=== PATIENT | female | born 1995 | race Two or more races ===

== ENCOUNTER 2024-10-02 16:07 | Emergency (ER) | payer MEDICAID, SELFPAY ==
[2024-10-02 16:08] VITALS: BMI 29.2
--- NOTE | 2024-10-02 16:10 | EKG_ITS ---
[facility] Test Date: 2024-10-02 Pat Name: TATIANNA ESCAMILLA Department: Room: - Gender: Female Library Helper: : 1995 Requested By: Mikal Zhou (ALLEN) Order Number: [id number] Reading MD: Mikal Zhou (SPARE FIXER) Measurements Intervals [place] Rate: 85 P: 43 MD: 112 QRS: 46 QRSD: 85 T: 47 QT: 347 QTc: 414 Interpretive Statements SINUS RHYTHM WITH SHORT MD INTERVAL No previous ECG available for comparison /store/S0/[id number]
[2024-10-02 17:00] VITALS: BP 150/94; PULSE 86; RESP 16; TEMP 36.7; O2SAT 100
--- NOTE | 2024-10-02 17:09 | EDNOTE_ITS ---
ED General RME/HPI General Chief complaint: Anxiety Stated complaint: SENT CLINIC FOR HIGH BLOOD PRESSURE AND ANXIETY Time Seen by Provider: 10/02/24 16:10 Arrival date/time: 10/02/24 16:07 28-year-old female with history of anxiety and methamphetamine use last use yesterday presents stating that she was anxious today and therefore came to the ER. Patient reports no chest pain no shortness of breath no headache dizziness weakness. Patient reports previously she took a prescription of hydroxyzine and she is out of her medication Limitations: no limitations Related Data Previous Rx's ?Medication ?Instructions ?Recorded hydroxyzine HCl 50 mg tablet 50 mg PO TID PRN anxiety #30 tabs 10/02/24 Allergies Allergy/AdvReac Type Severity Reaction Status Date / Time No Known Allergies Allergy Verified 10/02/24 16:08 Review of Systems Review of Systems Systems Reviewed: All systems reviewed, normal except as documented Constitutional Constitutional: Reports system reviewed and no additional complaints, except as documented, Denies fever(s) and Denies headache(s) Eyes Eyes: Reports system reviewed and no additional complaints, except as documented and Denies blurry vision ENT Ears, Nose, Mouth, and Throat: Reports system reviewed and no additional complaints, except as documented, Denies headache(s), Denies nasal congestion and Denies nasal discharge Cardiovascular Cardiovascular: Reports system reviewed and no additional complaints, except as documented, Denies chest pain and Denies dyspnea Respiratory Respiratory: Reports system reviewed and no additional complaints, except as documented, Denies chest congestion, Denies cough and Denies dyspnea Gastrointestinal Gastrointestinal: Reports system reviewed and no additional complaints, except as documented and Denies abdominal pain Integumentary/Breasts Skin/Breast: Reports system reviewed and no additional complaints, except as documented and Denies rash Neurologic Neurologic: Reports system reviewed and no additional complaints, except as documented, Reports as per HPI and Denies headache(s) Psychiatric Psychiatric: Reports system reviewed and no additional complaints, except as documented and Reports anxiety Past Medical History Past Medical History NEUROLOGIC: Negative Neurological Disorders or Seizures CARDIAC: Negative Cardiac Disorders or Congestive Heart Failure RESPIRATORY: Negative Chronic Obstructive Pulmonary Disease (COPD) GASTROINTESTINAL: Positive Gastrointestinal Disorders, Gall Bladder Disease (FOR THIS PROC) and Obesity GENITOURINARY: Negative Genitourinary Disorders or Renal Disease REPRODUCTIVE: Positive Previous Pregnancies (X1) MUSCULOSKELETAL: Positive Musculoskeletal Disorders ENDOCRINE: Negative Endocrine Disorders, Diabetes Mellitus Type 1 or Diabetes Mellitus Type 2 HEMATOLOGIC: Negative Blood Disorders OTHER HISTORY: Negative Autoimmune Disease, Blood Transfusions, Blood Transfusion Reaction or Anesthesia Reactions Family History FAMILY HISTORY: Positive Family Cancer (FATHER (KIDNEY)) and Family Surgery (MOTHER,FATHER) Social History SMOKING STATUS: Never smoker ED Exam General Limitations: Present no limitations General appearance: Present alert and in no apparent distress Head Head exam: Present atraumatic, normocephalic and normal inspection Eye Eye exam: Present normal appearance, PERRL and EOMI; Absent conjunctival injection ENT ENT exam: Present normal exam, normal oropharynx and mucous membranes moist Neck Neck exam: Present normal inspection, full ROM and trachea midline Chest Chest inspection: Present normal inspection and symmetric chest wall rise Respiratory Respiratory exam: Present normal lung sounds bilaterally; Absent respiratory distress, wheezes, stridor or accessory muscle use Cardiovascular Cardiovascular exam: Present regular rate, normal rhythm and normal heart sounds Abdominal Exam Abdominal exam: Present soft and normal bowel sounds; Absent distention, tenderness, guarding, rebound or rigidity Extremities Exam Extremities exam: Present normal inspection and full ROM Back Exam Back exam: Present normal inspection and full ROM Neurological Exam Neurological exam: Present alert, oriented X3 and CN II-XII intact Psychiatric Psychiatric exam: Present normal affect and normal mood Skin Skin exam: Present warm, dry, intact and normal color Course Quality Measures none Orders Category Date Time Status EKG (ED ONLY) *Do not use* NOW Care 10/02/24 16:10 Active EKG (ED Only) Stat Exams 10/02/24 16:10 Draft Vital Signs Vital signs: Vital Signs Temperature 98.0 F 10/02/24 17:00 Pulse Rate 86 10/02/24 17:00 Respiratory Rate 16 10/02/24 17:00 Blood Pressure 150/94 H 10/02/24 17:00 Pulse Oximetry (%) 100 10/02/24 17:00 Oxygen Delivery Method Room Air 10/02/24 17:00 O2 saturation 100% room air within normal limits Procedures -ED EKG Interpretation #1: Date of EK10/02/24 Time of EK:58 Rate: 85 Interpretation: Interpreted by me EKG Impression: Normal sinus rhythm, No acute ST-T changes, No ectopy, No ischemic changes, Normal QRS, Normal intervals and Normal axis MDM Patient data External records reviewed:: [facility] previous records Clinical information provided by:: patient Social determinants that could affect healthcare access:: substance use Patient has the following chronic illnesses:: Substance abuse How is presenting disease/condition affected by chronic disease/condition?: caused by Evaluation data The following diagnostics were reviewed and interpreted by me:: EKG tracing(s) Lab and/or radiology exams considered but not ordered:: EKG obtained Interpretation Summary: Reviewed by me Medications Medications considered but not ordered:: Given Medication administrations:: Given Consultations Consultation(s) initiated? (list below): No Diagnosis Differential Diagnosis ED Complaint MDM: Anxiety, depression, drug abuse Most likely diagnosis given after review of the tests above:: Anxiety Admission Indicated Admission indicated?: not indicated Explain why admission is indicated or not indicated:: No criteria Admission Request Was there a request for admission?: No Disposition Plan Disposition Plan: Discharge Discharge Attestation Discharge Attestation: The patient and all family members were given an opportunity to ask questions and understood the discharge instructions. Discharge instructions specifically effects, indications for sooner follow up or return to the emergency department, and the expected course of current diagnosis. Patient condition: Stable Medical Decision Making MDM Narrative MDM Narrative: 28-year-old female with history of anxiety and methamphetamine use last use yesterday presents stating that she was anxious today and therefore came to the ER. Patient reports no chest pain no shortness of breath no headache dizziness weakness. Patient reports previously she took a prescription of hydroxyzine and she is out of her medication On exam patient well-appearing patient does not appear ill or toxic. Patient reports no suicidal or homicidal ideation EKG obtained EKG normal sinus rhythm with short MI interval no acute ST elevation or depression Patient given a prescription for hydroxyzine and discharged home Differential Diagnosis Differential Diagnosis: Anxiety, depression, drug abuse Medical Records Medical records reviewed: Yes I reviewed the patient's medical records. Discharge Plan Plan Patient Disposition: HOME (Self Care) Disposition Comment: Stable Prescriptions/Referrals Prescriptions/Med Rec: New hydroxyzine HCl 50 mg tablet 50 mg PO TID PRN (Reason: anxiety) Qty: 30 0RF Problem List Clinical Impression: Anxiety, Methamphetamine use Patient/Caregiver Discharge Instructions Education Materials: ED Anxiety Reaction Additional Instructions: Please follow up with your primary care doctor in the next 24-48hrs for any worsening symptoms return here immediately Print Language: Nigerien Stand Alone Forms: Carol Award Info., Patient Portal Info Letter PA/COAL DUMPING EQUIPMENT OPERATOR Supervising Physician PA/COAL DUMPING EQUIPMENT OPERATOR Supervising Physician: Dr leung
== END 2024-10-02 19:07 | disposition home or self-care (01) ==
LOC: SERX 19:01
PROVIDERS: Emergency Provider Emergency Medicine
DX: F41.9 Anxiety disorder, unspecified (principal); F15.90 Other stimulant use, unspecified, uncomplicated
CPT/HCPCS: 93005; 99283

== ENCOUNTER 2024-10-13 17:06 | Emergency (ER) | payer MEDICAID, SELFPAY ==
[2024-10-13 17:07] VITALS: BMI 28.3
[2024-10-13 17:38] VITALS: BP 142/102; PULSE 70; RESP 20; TEMP 36.7; O2SAT 100
--- NOTE | 2024-10-13 17:45 | PD.EDRME ---
Rapid Medical Screening Exam RME Arrival date/time: 10/13/24 17:06 Chief Complaint: Headache Time Seen by Provider: 10/13/24 17:34 Vital signs: Vital Signs Temperature 98.0 F 10/13/24 17:38 Pulse Rate 70 10/13/24 17:38 Respiratory Rate 20 10/13/24 17:38 Blood Pressure 142/102 H 10/13/24 17:38 Pulse Oximetry (%) 100 10/13/24 17:38 Oxygen Delivery Method Room Air 10/13/24 17:38 Vital signs reviewed by provider: Yes RME Narrative: 28-year-old female presents to the ED with a complaint of right sided headache with pain behind her right eye. She has been having these headaches for approximately 2 weeks after quitting crystal meth. She has been seeing a primary care provider. She has associated nausea and the possibility of syncope. She has had similar headaches but this is much worse. She has felt hot and cold flashes however no documented temperature at home.
--- NOTE | 2024-10-13 17:52 | XR_ITS ---
Examination: CT brain head without contrast. 2-D sagittal coronal reconstructions Date and time of exam:October 13, 2024 1803 hours Indications: Right-sided headaches blurred vision: 12-year-old beginning one week ago CTDI: vol (mGy):11.3 DLP: (mGycm):1599 Technique: Multiple CT axial sections of the brain have been obtained, 5 mm slice thickness. Contrast has not been administered. 2-D sagittal, coronal reconstructions have been obtained Low dose protocols were performed. One or more of the following dose reduction techniques were used; automated exposure control, adjustment of the mA and/or KV according to patient size, use of iterative reconstruction technique. Findings: No significant ventricular enlargement. Intra-axial or extra-axial hemorrhage density is not seen. No mass effect or midline shift Basal cisterns are not remarkable. Fourth ventricle is midline. Cranial vault intact. Impression: Negative for acute hemorrhage, mass effect or midline shift As clinically warranted, brain MRI follow-up would best assess for demyelinating disease, acute ischemic change
[2024-10-13 18:31] LABS: Collection Type, Urine Clean Catch
[2024-10-13 18:34] LABS: Basophils # (Auto) 0.1 Thou/mm3 (0.0-0.2); Basophils % (Auto) 0 % (0-2.5); Eosinophils # (Auto) 0.1 Thou/mm3 (0.0-0.5); Eosinophils % (Auto) 1 % (0-10); Hematocrit 36.2 % (36.0-46.0); Hemoglobin 11.7 g/dL (12.0-16.0); Immature Granulocytes % (Auto) 0 % (0-0); Immature Granulocytes Auto 0.04 Thou/mm3 (0.00-0.00); Lymphocytes # (Auto) 2.6 Thou/mm3 (1.0-4.8); Lymphocytes % (Auto) 20 % (10-50); Mean Corpuscular HGB Conc 32.3 g/dl (31.0-37.0); Mean Corpuscular Hemoglobin 27.5 pg (25.0-35.0); Mean Corpuscular Volume 85 fL (80-100); Monocytes # (Auto) 0.5 Thou/mm3 (0.0-0.8); Monocytes % (Auto) 4 % (0-12); Neutrophils # (Auto) 9.9 Thou/mm3 (1.8-7.7); Neutrophils % (Auto) 75 % (37-80); Nucleated Red Blood Cell % 0 /100 WBC (0); Platelet Count 316 Thou/mm3 (140-440); RDW Standard Deviation 46.6 fL (36.4-46.3); Red Blood Count 4.25 Miln/mm3 (4.00-5.20); White Blood Count 13.2 Thou/mm3 (3.6-11.0)
[2024-10-13 18:37] LABS: HCG Qualitative,Urine Negative
[2024-10-13 18:45] LABS: Bacteria,Urine Rare; Bilirubin,Urine Negative (Negative); Blood,Urine Negative (Negative); Clarity,Urine Clear (Clear/Hazy); Color,Urine Lt-Yellow (Lt Yel-Yel); Glucose, Urine Negative (Negative); Hyaline Casts,Urine < 1 /hpf (0-1); Ketones,Urine Negative (Negative); Leukocyte Esterase,Urine Negative (Negative); Nitrite,Urine Negative (Negative); Protein,Urine Trace (Neg - Trace); RBC,Urine 2 /hpf (0-3); Specific Gravity,Urine 1.023 (1.001-1.035); Squamous Epithelial Cell,Urine 2 /hpf (0-5); WBC,Urine 2 /hpf (0-5)
[2024-10-13] MEDS: KETOROLAC INJ 60 MG/2 ML VIAL 30 MG IM (18:57)
[2024-10-13 19:00] LABS: Alanine Aminotransferase 19 U/L (10-49); Albumin/Globulin Ratio 1.4 (1.2-2.2); Alkaline Phosphatase 75 U/L (46-116); Anion Gap 8 (7-16); Aspartate Amino Transferase 21 U/L (0-34); BUN/Creatinine Ratio 13 Ratio (12-20); Bilirubin,Total 0.4 mg/dL (0.3-1.2); Blood Urea Nitrogen 10 mg/dL (9-23); Calcium 8.6 mg/dL (8.3-10.6); Calcium (Corrected) 8.6 mg/dL (8.5-10.1); Carbon Dioxide 28.8 mMol/L (20.0-31.0); Chloride 104 mMol/L (98-107); Creatinine (Component) 0.8 mg/dL (0.6-1.3); Estimated Creatinine Clearance 107.5 mL/min (>60); Globulin 2.8 gm/dL (2.3-3.5); Glucose 95 mg/dL (74-106); Osmolality,Calculated 280 (275-295); Sodium 141 mMol/L (136-145); Total Protein 6.8 gm/dL (5.7-8.2); eGFR > 60 See Note
[2024-10-13 19:16] LABS: Sed Rate (ESR) 16 mm/hr (0-20)
[2024-10-13 20:10] VITALS: BP 137/82; PULSE 85; RESP 18; TEMP 36.7; O2SAT 100
--- NOTE | 2024-10-13 20:47 | EDNOTE_ITS ---
ED General RME/HPI General Chief complaint: Headache Stated complaint: VELASQUEZ, NEAR SYNCOPE Time Seen by Provider: 10/13/24 17:34 Arrival date/time: 10/13/24 17:06 CC: Right-sided headache HPI ongoing for the past 2 days, the patient stopped using methamphetamines 2 weeks ago has been sober since. Patient last menstrual cycle it was in July she was tested for 1 week ago and it was negative. Patient admits she is sexually active. Patient denies fever chills chest pain shortness of breath or difficulty breathing. She has earlier in the day she had light sensitivity but no noise sensitivity currently they are all resolved. No other complaints no OTC medicines taken. RME / HPI RME / HPI narrative: 28-year-old female presents to the ED with a complaint of right sided headache with pain behind her right eye. She has been having these headaches for approximately 2 weeks after quitting crystal meth. She has been seeing a primary care provider. She has associated nausea and the possibility of syncope. She has had similar headaches but this is much worse. She has felt hot and cold flashes however no documented temperature at home. Related Data Previous Rx's ?Medication ?Instructions ?Recorded hydroxyzine HCl 50 mg tablet 50 mg PO TID PRN anxiety #30 tabs 10/02/24 meloxicam 7.5 mg tablet 7.5 mg PO QDAY #10 tabs 09/30 10/24 Allergies Allergy/AdvReac Type Severity Reaction Status Date / Time No Known Allergies Allergy Verified 10/02/24 16:08 Review of Systems Review of Systems Narrative Review of Systems: GEN: No fever, no chills, no weight loss EYES: No discharge, no visual changes, no pain HEENT: No ear pain, no congestion, no sore throat PULM: No shortness of breath, no cough, no congestion CV: No chest pain, no dyspnea on exertion, no palpitations GI: No nausea, no vomiting, no diarrhea, no pain, no constipation : No frequency, no urgency, no dysuria MUSC/SKEL: No joint pain, no back pain SKIN: No rash PSYCH: No hallucinations, no depression HEME/LYMPH: No easy bleeding or bruising tendencies NEURO: No weakness, + headache Past Medical History Past Medical History NEUROLOGIC: Negative Neurological Disorders or Seizures CARDIAC: Negative Cardiac Disorders or Congestive Heart Failure RESPIRATORY: Negative Chronic Obstructive Pulmonary Disease (COPD) GASTROINTESTINAL: Positive Gastrointestinal Disorders, Gall Bladder Disease (FOR THIS PROC) and Obesity GENITOURINARY: Negative Genitourinary Disorders or Renal Disease REPRODUCTIVE: Positive Previous Pregnancies (X1) MUSCULOSKELETAL: Positive Musculoskeletal Disorders ENDOCRINE: Negative Endocrine Disorders, Diabetes Mellitus Type 1 or Diabetes Mellitus Type 2 HEMATOLOGIC: Negative Blood Disorders OTHER HISTORY: Negative Autoimmune Disease, Blood Transfusions, Blood Transfusion Reaction or Anesthesia Reactions Family History FAMILY HISTORY: Positive Family Cancer (FATHER (KIDNEY)) and Family Surgery (MOTHER,FATHER) Social History SMOKING STATUS: Current some day smoker ED Exam Narrative Physical exam: [General: Not in any acute distress Head normocephalic HEENT: Eyes pupils are PERRLA EOMs are intact mouth pink moist membranes uvula is midline swallow symmetrical phonation is normal. All of the subsystems of ATTR within acceptable limits Neck is supple nontender Chest equal chest rise nontender to palpation Respiratory: Clear to auscultation no wheezes crackles or rubs CV: Rate rhythm is regular no murmurs rubs or clicks Abdomen is distended secondary to body habitus soft nontender no masses positive bowel sounds all 4 quadrants Back: No CVA tenderness no spinous process tenderness from cervical spine thoracic and lumbar spine Skin: Intact no petechiae rash induration ulceration or crepitus Extremities: Moving all extremity against resistance cap refill less than 2 seconds neurosensory intact Neuro: Awake alert oriented x3 Glascow coma 15 no focal deficits] Course Quality Measures none Orders Category Date Time Status CT head/brain wo con Stat Exams 10/13/24 17:52 Completed CBC Stat Lab 10/13/24 18:28 Completed CMP [Comprehensive Metabolic Panel] Stat Lab 10/13/24 18:28 Completed ESR [Sed Rate (ESR)] Stat Lab 10/13/24 18:28 Completed HCG Qualitative,Urine Stat Lab 10/13/24 18:18 Completed Urinalysis Stat Lab 10/13/24 18:18 Completed Ketorolac Inj [Toradol Inj] Med 10/13/24 17:52 Discontinued 30 mg IM X1 ONE Vital Signs Vital signs: Vital Signs Temperature 98.0 F 10/13/24 17:38 Pulse Rate 70 10/13/24 17:38 Respiratory Rate 20 10/13/24 17:38 Blood Pressure 142/102 H 10/13/24 17:38 Pulse Oximetry (%) 100 10/13/24 17:38 Oxygen Delivery Method Room Air 10/13/24 17:38 MDM Patient data External records reviewed:: [facility] previous records Clinical information provided by:: patient Social determinants that could affect healthcare access:: none Patient has the following chronic illnesses:: Methamphetamine use low back pain. How is presenting disease/condition affected by chronic disease/condition?: u neffected by Evaluation data The following diagnostics were reviewed and interpreted by me:: lab results Lab and/or radiology exams considered but not ordered:: CBC shows a mild leukocytosis of 13.2 hemoglobin 11.7 normal hematocrit no thrombocytopenia CMP shows no acute electrolyte imbalances renal impairment transaminitis or T. bili elevation. Urine is negative for UTI Urine is negative. Interpretation Summary: This may be considered a migraine or typical headache however the majority of it is gone we will discharge the patient home on meloxicam she is to follow-up with her primary care provider and continue to talk to her counselor regarding her anxiety. Medications Medications considered but not ordered:: None Medication administrations:: Medication Administration History Discontinued Medications Ketorolac Tromethamine (Ketorolac Inj 60 Mg/2 Ml Vial) 30 mg IM X1 ONE Stop: 10/13/24 17:53 Last Admin: 10/13/24 18:57 Dose: 30 mg Documented By: KF None Consultations Consultation(s) initiated? (list below): No Diagnosis Differential Diagnosis ED Complaint MDM: Complex migraine tension headache General Headache Most likely diagnosis given after review of the tests above:: Headache Admission Indicated Admission indicated?: not indicated Explain why admission is indicated or not indicated:: Stable for discharge Admission Request Was there a request for admission?: No Disposition Plan Disposition Plan: Discharge Discharge Attestation Discharge Attestation: The patient and all family members were given an opportunity to ask questions and understood the discharge instructions. Discharge instructions specifically effects, indications for sooner follow up or return to the emergency department, and the expected course of current diagnosis. Patient condition: Stable Medical Decision Making Differential Diagnosis Differential Diagnosis: Complex migraine tension headache General Headache Lab Data 10/13/24 18:28 10/13/24 18:28 Labs: Lab Results 10/13/24 10/13/24 Range/Units 18:18 18:28 WBC 13.2 H (3.6-11.0) Thou/mm3 RBC 4.25 (4.00-5.20) Miln/mm3 Hgb 11.7 L (12.0-16.0) g/dL Hct 36.2 (36.0-46.0) % MCV 85 (80-100) fL MCH 27.5 (25.0-35.0) pg MCHC 32.3 (31.0-37.0) g/dl RDW Std Deviation 46.6 H (36.4-46.3) fL Plt Count 316 (140-440) Thou/mm3 Neut % (Auto) 75 (37-80) % Lymph % (Auto) 20 (10-50) % [place] % (Auto) 4 (0-12) % Eos % (Auto) 1 (0-10) % Baso % (Auto) 0 (0-2.5) % Neut # (Auto) 9.9 H (1.8-7.7) Thou/mm3 Lymph # (Auto) 2.6 (1.0-4.8) Thou/mm3 [place] # (Auto) 0.5 (0.0-0.8) Thou/mm3 Eos # (Auto) 0.1 (0.0-0.5) Thou/mm3 Baso # (Auto) 0.1 (0.0-0.2) Thou/mm3 Immature Gran # (Auto) 0.04 H (0.00-0.00) Thou/mm3 Absolute Nucleated RBC 0.00 (0.00-0.00) Thou/mm3 Immature Gran % 0 (0-0) % Nucleated RBC % 0 (0) /100 WBC ESR 16 (0-20) mm/hr Sodium 141 (136-145) mMol/L Potassium 4.0 (3.4-5.1) mMol/L Chloride 104 (98-107) mMol/L Carbon Dioxide 28.8 (20.0-31.0) mMol/L Anion Gap 8 (7-16) BUN 10 (9-23) mg/dL Creatinine 0.8 (0.6-1.3) mg/dL Estim Creat Clear Calc 107.5 (>60) mL/min eGFR > 60 (60 - ) See Note BUN/Creatinine Ratio 13 (12-20) Ratio Glucose 95 (74-106) mg/dL Calculated Osmolality 280 (275-295) Calcium 8.6 (8.3-10.6) mg/dL Corrected Calcium 8.6 (8.5-10.1) mg/dL Total Bilirubin 0.4 (0.3-1.2) mg/dL AST 21 (0-34) U/L ALT 19 (10-49) U/L Alkaline Phosphatase 75 (46-116) U/L Total Protein 6.8 (5.7-8.2) gm/dL Albumin 4.0 (3.5-5.0) gm/dL Globulin 2.8 (2.3-3.5) gm/dL Albumin/Globulin Ratio 1.4 (1.2-2.2) Ur Collection Type Clean Catch Urine Color Lt-Yellow (Lt Yel-Yel) Urine Clarity Clear (Clear/Hazy) Urine pH 7.0 (5.0-7.0) Ur Specific [place] 1.023 (1.001-1.035) Urine Protein Trace (Neg - Trace) Urine Glucose (UA) Negative (Negative) Urine Ketones Negative (Negative) Urine Blood Negative (Negative) Urine Nitrite Negative (Negative) Urine Bilirubin Negative (Negative) Urine Urobilinogen (Auto) 2.0 (0.0-1.0) mg/dL Ur Leukocyte Esterase Negative (Negative) Urine RBC 2 (0-3) /hpf Urine WBC 2 (0-5) /hpf Ur Squamous Epith Cells 2 (0-5) /hpf Urine Bacteria Rare (None) Hyaline Casts < 1 (0-1) /hpf Urine HCG, Qual Negative Discharge Plan Plan Patient Disposition: HOME (Self Care) Patient condition on transfer: Stable Prescriptions/Referrals Prescriptions/Med Rec: New meloxicam 7.5 mg tablet 7.5 mg PO QDAY Qty: 10 0RF No Action hydroxyzine HCl 50 mg tablet 50 mg PO TID PRN (Reason: anxiety) Qty: 30 0RF Referrals: No Primary/Family,Physician [Primary Care Provider] - In 1 week Problem List Clinical Impression: Headache Patient/Caregiver Discharge Instructions Other Activity Instructions:: Keep a diary of your anxiety attacks and talk to your counselor regarding finding the triggers and how to work through the anxiety. Follow-up with your regular doctor appointments continue to stay off methamphetamines that is a tremendously good job that you have done thus far. Remember 1 day at a time. Education Materials: Self-Care for Headaches Print Language: Panamanian Stand Alone Forms: [employer] Award Info., Work/School Release, Patient Portal Info Letter PA/CLINICAL CYTOPATHOLOGIST Supervising Physician PA/CLINICAL CYTOPATHOLOGIST Supervising Physician: Miguel Pascal ENP
[2024-10-13 20:56] VITALS: BP 140/79; PULSE 81; RESP 18; O2SAT 100
== END 2024-10-13 20:58 | disposition home or self-care (01) ==
PROVIDERS: Physician Assistant; Emergency Provider Emergency Medicine
DX: R51.9 Headache, unspecified (principal)
CPT/HCPCS: 36415; 70450; 80053; 81001; 81025; 85025; 85652; 96372; 99284; J1885

== ENCOUNTER 2025-06-10 15:15 | Emergency (ER) | payer MEDICAID, SELFPAY ==
[2025-06-10 16:00] VITALS: BP 130/84; PULSE 71; RESP 18; TEMP 36.8; O2SAT 98; BMI 35.2
--- NOTE | 2025-06-10 17:32 | PD.EDWOUND ---
ED Wound/Laceration-RME/HPI General Chief Complaint: Wound/Laceration Stated Complaint: Left 3rd toe infection Time Seen by Provider: 06/10/25 16:45 Arrival date/time: 06/10/25 15:15 RME / HPI RME / HPI narrative: Healthy 28-year-old female complaining of left third toe pain with blisters and pus which began 3 days ago. Denies any fever, nausea, vomiting, trauma, numbness, tingling, weakness. Denies chance of . Related Data Previous Rx's ?Medication ?Instructions ?Recorded hydroxyzine HCl 50 mg tablet 50 mg PO TID PRN anxiety #30 tabs 10/02/24 meloxicam 7.5 mg tablet 7.5 mg PO QDAY #10 tabs 10/13/24 cephalexin 500 mg capsule 500 mg PO QID #40 caps 06/10/25 sulfamethoxazole 800 1 tab PO BID #20 tabs 06/10/25 mg-trimethoprim 160 mg tablet (Bactrim DS) Allergies Allergy/AdvReac Type Severity Reaction Status Date / Time No Known Allergies Allergy Verified 06/10/25 15:20 ED Exam Narrative Physical exam: Constitutional: Vital Signs Reviewed. Well appearing. No acute distress. Not toxic appearing. Head: Normocephalic, atraumatic. Eyes: Conjunctiva clear. ENT: Mucous membranes moist. Neck: Trachea midline. Normal range of motion. No nuchal rigidity. Respiratory: Normal effort. No respiratory distress or accessory muscle use. Neuro: Alert and oriented. Speech normal. No focal gross motor or sensory deficits observed. Skin: Warm, dry, normal color. Psych: Pleasant. Normal affect. Cooperative. Extremity: Left foot at the third digit interdigital webspace between 3 and 4 there is minimal erythema, 3 puncture sized wounds noted to the interdigital webspace with yellow discharge that does not probe to bone. Full range of motion and strength 5 out of 5 and sensation intact to light touch for MTP PIP and DIP joint of the left third digit. No crepitus or fluctuance or ecchymosis. Cap refill less than 2 seconds. Course Course Course Narrative: MDM ?cellulitis This patient?s soft tissue infection appears appropriate for outpatient management with close follow-up by a clinician within 24?48 hours. There are no signs of systemic toxicity, and a serious, rapidly progressive infection is unlikely based on presentation and exam. Doubt necrotizing fasciitis given lack of tenderness beyond erythema or crepitus, and doubt lymphangitis given lack of streaking. No focal fluid collection is appreciated to suggest need for incision and drainage. Antibiotics have been initiated, and response will be assessed at follow-up. The patient has been instructed on signs of acute progression and to return immediately if symptoms worsen or change Quality Measures none Orders Category Date Time Status Wound Culture and Gram Stain Stat Lab 06/10/25 17:04 Received Trimethoprim/Sulfa 160/800 Ds [Bactrim Ds] Med 06/10/25 18:04 Once 1 tab PO X1 ONE cephALEXin [Keflex] Med 06/10/25 18:04 Once 500 mg PO X1 ONE Reevaluation(s) Reevaluation #1: At the time of reassessment prior to discharge, the patient remains alert and oriented ?3 with GCS 15. Vitals are normal, pain is controlled, and the patient is tolerating oral intake without nausea or vomiting. The patient is agreeable to discharge and verbalizes understanding of the diagnosis, studies, treatment plan, medications (including side effects/precautions), and strict ER return precautions as discussed in the ED. All concerns were addressed, and the patient is comfortable with the plan. Vital Signs Vital signs: Vital Signs Temperature 98.3 F 06/10/25 16:00 Pulse Rate 71 06/10/25 16:00 Respiratory Rate 18 06/10/25 16:00 Blood Pressure 130/84 06/10/25 16:00 Pulse Oximetry (%) 98 06/10/25 16:00 Oxygen Delivery Method Room Air 06/10/25 16:00 Wound / Laceration Patient data External records reviewed:: [facility] previous records Clinical information provided by:: patient Social determinants that could affect healthcare access:: none Patient has the following chronic illnesses:: As noted How is presenting disease/condition affected by chronic disease/condition?: uneffected by Evaluation data The following diagnostics were reviewed and interpreted by me:: other (specify) Lab and/or radiology exams considered but not ordered:: Additional Labs and radiology considered, but not ordered as they were not clinically indicated at this time. Interpretation Summary: As noted Medications / Prescriptions Medications or Prescriptions considered but not ordered:: I ordered medications based on the patient?s clinical needs and assessment, as documented in the chart. For medications not prescribed, they were not indicated for the patient's current condition, and I determined they were unnecessary at this time to avoid potential risks or complications. Medication administrations:: Medication Administration History Cephalexin HCl (Cephalexin 250 Mg Capsule) 500 mg PO X1 ONE Stop: 06/10/25 18:05 Trimethoprim/Sulfamethoxazole (Trimethoprim/Sulfa 160/800 Ds Tablet) 1 tab PO X1 ONE Stop: 06/10/25 18:05 As noted Consultations Consultation(s) initiated? (list below): No Diagnosis Wound Differential Diagnosis: other Most likely diagnosis given after review of the tests above:: Cellulitis Admission Indicated Admission indicated?: not indicated Admission Request Was there a request for admission?: No Disposition Plan Disposition Plan: Discharge Discharge Attestation Discharge Attestation: The patient and all family members were given an opportunity to ask questions and understood the discharge instructions. Discharge instructions specifically effects, indications for sooner follow up or return to the emergency department, and the expected course of current diagnosis. Patient condition: Stable Discharge Plan Plan Patient Disposition: HOME (Self Care) Patient condition on transfer: Stable Prescriptions/Referrals Prescriptions/Med Rec: New cephalexin 500 mg capsule 500 mg PO QID Qty: 40 0RF sulfamethoxazole-trimethoprim [Bactrim DS] 800-160 mg tablet 1 tab PO BID Qty: 20 0RF No Action hydroxyzine HCl 50 mg tablet 50 mg PO TID PRN (Reason: anxiety) Qty: 30 0RF meloxicam 7.5 mg tablet 7.5 mg PO QDAY Qty: 10 0RF Referrals: Boy Wise MD [Primary Care Provider, Family Practice] - In 1 week Problem List Clinical Impression: Cellulitis Patient/Caregiver Discharge Instructions Education Materials: Discharge Instructions for Cellulitis Additional Instructions: Follow up with your primary medical doctor within 48 hours. Return to the Emergency Room immediately for any new, worsening, continuing symptoms or any concerns at all. Return to the Emergency Room within 48 hours if you are unable to follow up with your primary medical doctor within 48 hours. Print Language: Czech Stand Alone Forms: Carol Award Info., Patient Portal Info Letter PA/OSMAR Supervising Physician KAREN/OSMAR Supervising Physician: Dr. Jacobson
[2025-06-10] MEDS: TRIMETHOPRIM/SULFA 160/800 DS TABLET 1 TAB PO (18:32)
== END 2025-06-10 18:35 | disposition home or self-care (01) ==
PROVIDERS: Emergency Provider Emergency Medicine; PCP Family Medicine
DX: S90.425A Blister (nonthermal), left lesser toe(s), initial encounter (principal); L03.032 Cellulitis of left toe; X58.XXXA Exposure to other specified factors, initial encounter
CPT/HCPCS: 87070; 87077; 87186; 87205; 99281; A9270